=== PATIENT | male | born 1950 | race Caucasian/White ===

== ENCOUNTER 2018-01-24 09:25 | Day surgery (SDC) | payer MEDICARE, OTHER, SELFPAY ==
[2018-01-24] VITALS (8 sets, daily range): BP systolic 99–121; BP diastolic 63–81; PULSE 70–82; RESP 14–18; TEMP 36.1–36.6; O2SAT 94–99; BMI 24.2
--- NOTE | 2018-01-24 | PATH_ITS ---
[facility] Accession Number: [id number] . 01 Material submitted: . PART A: ASCENDING COLON POLYP PART B: HEPATIC FLEXTURE POLYP . 02 Diagnosis: A. Ascending Colon, Polyp, Biopsy: Tubular adenoma. . B. Hepatic Flexure, Polyp, Biopsy: Inflammatory pseudopolyp. Negative for dysplasia and malignancy. V/01/25/2018 . 02 Electronically signed: . Seema Allan MD, Pathologist NPI- [id number] . 01 Gross description: . Received two formalin-filled containers, both labeled with the patient's name: . A. In a container labeled ascending col polyp, the specimen consists of a 0.4 cm portion of tissue, entirely submitted in cassette A. B. In a container labeled hepatic flexure polyp, the specimen consists of a 0.5 cm portion of tissue, entirely submitted in cassette B. ([id number]) /FRR . 02 Pathologist provided ICD-10: D12.2 . 02 CPT . 835621, 478331 Performed at: 01 [facility] [address] [facility], [place], [place] [id number] MD Rick Haddad MD Phone: [phone] Performed at: 02 [facility] [address] [place], [place] [id number] MD Leopoldo Sarmiento MD Phone: [phone]
[2018-01-24] MEDS: SODIUM CHLORIDE 0.9% 1,000 ML 200 ML IV (10:22)
--- NOTE | 2018-01-24 11:32 | SUR.OPER ---
Polypectomy with cautery perfomed. magnet was applied during cautery per dr. Mosher.
--- NOTE | 2018-01-24 11:39 | PM.HP.1 ---
History of Present Illness Date Patient Seen: 01/24/18 Time Patient Seen: 11:40 Chief complaint: [id number] COLONOSCOPY W/POSS BX Narrative: History of colon polyps Patient History Medical History Automatic implantable cardioverter-defibrillator in situ (Acute) Cardiac arrhythmia (Acute) Cardiomyopathy (Acute) Hypertension (Acute) Family & Social History Social History: household members spouse Meds Home Medications Medication Instructions Recorded Confirmed Type aspirin 81 mg PO DAILY 01/24/18 01/24/18 History carvedilol 12.5 mg PO BID 01/24/18 01/24/18 History cholecalciferol (vitamin D3) 2,000 units PO DAILY 01/24/18 01/24/18 History coenzyme Q10 100 mg PO DAILY 01/24/18 01/24/18 History lisinopril 10 mg PO DAILY 01/24/18 01/24/18 History Allergies Allergy/AdvReac Type Severity Reaction Status Date / Time amoxicillin [From Augmentin] Allergy Nausea Verified 01/24/18 10:16 clavulanic acid Allergy Verified 01/24/18 10:16 [From Augmentin] pseudoephedrine AdvReac Tachycardia Verified 01/24/18 10:18 theophylline AdvReac Tachycardia Verified 01/24/18 10:17 Exam Vital Signs (past 8 hours): - Oropharynx: Free of lesion Chest: Clear to auscultation percussion Cardiac exam: No S3 or murmur 01/24/18 10:18 Temperature 97.9 F Pulse Rate 75 Respiratory Rate 15 Blood Pressure 121/81 Pulse Oximetry 99 Oxygen Delivery Method Room Air Assessment & Plan Plan: Assessment/Plan Narrative: History of colon polyps need for follow-up colonoscopy. If cautery to be used then magnet will be need to deactivate the defibrillator.
[2018-01-24] MEDS: MIDAZOLAM 5 MG/5 ML VIAL IV (11:41)
[2018-01-24] MEDS: fentaNYL 250 MCG/5 ML INJ IV (11:42)
--- NOTE | 2018-01-24 11:43 | P.HP_ITS ---
History of Present Illness Date Patient Seen: 01/24/18 Time Patient Seen: 11:40 Chief complaint: [id number] COLONOSCOPY W/POSS BX Narrative: History of colon polyps Patient History Medical History Automatic implantable cardioverter-defibrillator in situ (Acute) Cardiac arrhythmia (Acute) Cardiomyopathy (Acute) Hypertension (Acute) Family & Social History Social History: household members spouse Meds Home Medications Medication Instructions Recorded Confirmed Type aspirin 81 mg PO DAILY 01/24/18 01/24/18 History carvedilol 12.5 mg PO BID 01/24/18 01/24/18 History cholecalciferol (vitamin D3) 2,000 units PO DAILY 01/24/18 01/24/18 History coenzyme Q10 100 mg PO DAILY 01/24/18 01/24/18 History lisinopril 10 mg PO DAILY 01/24/18 01/24/18 History Allergies Allergy/AdvReac Type Severity Reaction Status Date / Time amoxicillin [From Augmentin] Allergy Nausea Verified 01/24/18 10:16 clavulanic acid Allergy Verified 01/24/18 10:16 [From Augmentin] pseudoephedrine AdvReac Tachycardia Verified 01/24/18 10:18 theophylline AdvReac Tachycardia Verified 01/24/18 10:17 Exam Vital Signs (past 8 hours): - Oropharynx: Free of lesion Chest: Clear to auscultation percussion Cardiac exam: No S3 or murmur 01/24/18 10:18 Temperature 97.9 F Pulse Rate 75 Respiratory Rate 15 Blood Pressure 121/81 Pulse Oximetry 99 Oxygen Delivery Method Room Air Assessment & Plan Plan: Assessment/Plan Narrative: History of colon polyps need for follow-up colonoscopy. If cautery to be used then magnet will be need to deactivate the defibrillator.
--- NOTE | 2018-01-24 11:43 | PM.OP.ENDO ---
Operative Date/Time/Diagnoses Date of procedure: 01/24/18 Time of procedure: 11:43 Pre-op diagnosis: See indications Post-op diagnosis: same Procedure & Clinicians Study performed: Colonoscopy and polypectomy Same procedure as scheduled: Yes Indications: History of colon polyps Surgeon: Leela Mosher Procedure Notes Procedure in detail: After informed consent was obtained the patient was placed in left lateral decubitus position. Video colonoscope was introduced the rectum scope easily passed the cecum. Preparation was good. On slow withdrawal mucosa was carefully examined. The scope was removed. The patient tolerated procedure well Blood loss none Complications none Sedation Fentanyl 100 mcg Versed 6 mg IV titration Total sedation time 21 min Findings 1. 4 mm polyp in the ascending colon Jumbo biopsied removed completely 2. Difficult to see 1.2 cm sessile polyp at the hepatic flexure. This had a somewhat broad base. Magnet was applied to the defibrillator and brief cautery was used to snare and remove this polyp. The area was injected with 2 cc of spot to tattoo for future location. 3. Extensive sigmoid and left-sided diverticulosis We will have to closely follow up on this polyp. Given its size and unusually broad nature at the base I think he should have follow-up colonoscopy in 1 year.
== END 2018-01-24 12:35 | disposition home or self-care (01) ==
PROVIDERS: PCP Family Medicine; Visit Provider Internal Medicine Gastroenterology
PROC: 0DJD8ZZ Inspection of Lower Intestinal Tract, Via Natural or Artificial Opening Endoscopic (ICD-10-PCS; CPT 45378; principal; 2018-01-24 11:00)
DX: Z12.11 Encounter for screening for malignant neoplasm of colon (principal); D12.2 Benign neoplasm of ascending colon; K51.40 Inflammatory polyps of colon without complications; K57.30 Diverticulosis of large intestine without perforation or abscess without bleeding; I10 Essential (primary) hypertension; I49.9 Cardiac arrhythmia, unspecified; I42.9 Cardiomyopathy, unspecified; Z86.010 Personal history of colon polyps; Z95.810 Presence of automatic (implantable) cardiac defibrillator; Z79.82 Long term (current) use of aspirin
CPT/HCPCS: 45385; 45381; 45380; 88305; J2250; J3010

== ENCOUNTER → 2021-07-02 13:38 | Outpatient (CLI) | payer MEDICARE, OTHER, SELFPAY ==
[2021-07-02 15:09] LABS: BUN Creatinine Ratio 21.5 (6-22); Blood Urea Nitrogen 20 mg/dL (9-20); Estimated Glomerular Filt Rate > 60.0 mL/min (>60)
== END ==
PROVIDERS: PCP Family Medicine; Referring Provider Urology; Visit Provider Urology
DX: R31.9 Hematuria, unspecified (principal)
CPT/HCPCS: 36415; 82565; 84520

== ENCOUNTER → 2021-07-07 12:43 | Outpatient (CLI) | payer MEDICARE, OTHER, SELFPAY ==
--- NOTE | 2021-07-07 12:53 | DI.CT.S_ITS ---
PROCEDURE: CT ABDOMEN PELVIS WO/W CON INDICATIONS: Gross hematuria TECHNIQUE: Optional 5 mm thick noncontrast images acquired from the diaphragm to the symphysis pubis. After the administration of intravenous contrast, 5 mm thick images acquired from the diaphragm to the symphysis pubis after a 10-minute delay. 2 mm thick coronal and sagittal reformats were then performed of the kidneys and ureters. For radiation dose reduction, the following was used: automated exposure control, adjustment of mA and/or kV according to patient size. COMPARISON: [facility], CT, KIDNEY/ URETER/BLADDER, 01/04/2009, 12:18. FINDINGS: Image quality: Excellent. Lung bases: Lung bases are clear. Heart size is normal. Urinary system: Stable appearance of the bilateral kidneys with multiple nonenhancing right renal hypodensities compatible with cysts. There is also cortical scarring of the left kidney with numerous variably sized small and large nonenhancing renal hypodensities compatible with and hyperdense cysts. No abnormal enhancement seen within these structures. There is no evidence for hydronephrosis. Multiple dense calcifications noted in the bilateral kidneys. There also multiple non obstructing nephrolith seen in the right kidney measuring up to 9 mm in size on the right and 5 mm on the left. No perinephric stranding. Bilateral ureters are normal in course and caliber. No ureteral stones seen. Renal calyces appear normal in morphology when filled with contrast. Opacified portions of both ureters demonstrate normal caliber. There is mild circumferential urinary bladder wall thickening. The anterior margin of the urinary bladder is not well visualized secondary to significant beam artifact from adjacent right pelvic sidewall surgical fixation hardware. Other solid organs: Liver is normal in size and enhancement. Gallbladder is surgically absent. Biliary system is non dilated. Pancreas enhances normally. Spleen is normal in size and enhancement. No adrenal nodules. Peritoneum and bowel: Bowel loops demonstrate normal wall thickness and caliber. No free fluid or air. Colonic diverticulosis without acute diverticulitis. Nodes and vessels: No retroperitoneal or mesenteric adenopathy by size criteria. Scattered atherosclerotic calcifications of the abdominal aorta and iliac vessels without aneurysmal dilatation. The inferior vena cava appears patent. Abdominal wall: No ventral hernias. Pelvis: No pathologic free pelvic fluid. No inguinal hernias. No pelvic adenopathy. Postsurgical changes from surgical fixation of right pelvic wall fracture. No suspicious osseous lesions. Degenerative changes of the imaged spine. Degenerative changes of the bilateral hips. There is prostate enlargement. Prostate contains scattered coarse calcifications internally. Bones: No suspicious bony lesions. No acute vertebral body compression fractures. IMPRESSION: 1. Bilateral nonobstructing nephrolithiasis. No evidence for hydronephrosis or hydroureter. No acute inflammatory changes. 2. Stable appearance of bilateral renal cysts. Numerous small renal cysts on the right. Multiple variably sized simple and hyperdense cysts on the left. 3. Unremarkable appearance of the upper and lower urinary collecting system without suspicious finding to suggest uroepithelial abnormalities. However, the urinary bladder wall is not well visualized secondary to significant beam hardening artifact from adjacent hardware from prior ORIF of the right pelvis. 4. Status post cholecystectomy. 5. Colonic diverticulosis without acute diverticulitis. 6. Atherosclerotic vascular disease. 7. Mild circumferential urinary bladder wall thickening likely related to sequela of chronic bladder outlet obstruction secondary to prostatomegaly. Other chronic findings as above. Dictated by: Wolfgang Klein M.D. on 07/07/2021 at 15:49 Approved by: Wolfgang Klein M.D. on 07/07/2021 at 16:06
== END ==
PROVIDERS: PCP Family Medicine; Referring Provider Urology; Visit Provider Urology
DX: R31.0 Gross hematuria (principal); N20.0 Calculus of kidney; N28.1 Cyst of kidney, acquired; N40.0 Benign prostatic hyperplasia without lower urinary tract symptoms; I70.0 Atherosclerosis of aorta; K57.90 Diverticulosis of intestine, part unspecified, without perforation or abscess without bleeding; Z90.49 Acquired absence of other specified parts of digestive tract
CPT/HCPCS: 74178

== ENCOUNTER 2023-02-07 11:22 | Day surgery (SDC) | payer MEDICARE, OTHER, SELFPAY ==
--- NOTE | 2023-02-07 | PATH_ITS ---
[facility] Accession Number: [id number] No. of containers..01 Tissue . 01 Material submitted: . colon - ASCENDING . 01 Diagnosis: Ascending Colon: Tubular adenoma. MRV 02/10/2023 1306 Local . 01 Electronically signed: . Carrie Stuart MD, Pathologist NPI- [id number] . 01 Gross description: . ASCENDING: Received in formalin is 1 fragment(s) of ling, soft tissue measuring 0.4 x 0.3 x 0.2 cm submitted entirely in 1 cassette(s) /AAY 02/09/2023 0242 Local . 01 Pathologist provided ICD-10: K63.5 . 01 CPT . 700726 Specimen Comment: A courtesy copy of this report has been sent to [phone] Performed at: 01 [facility] [address] [place] [id number] MD Rick Haddad MD Phone: [phone]
[2023-02-07 11:48] VITALS: BMI 24.0
[2023-02-07 12:01] VITALS: BP 130/87; PULSE 74; RESP 16; TEMP 36; O2SAT 97
[2023-02-07] MEDS: LACTATED RINGERS 1,000 ML 150 ML IV (12:03)
--- NOTE | 2023-02-07 12:26 | PM.HP.1 ---
History of Present Illness History of Present Illness Date Patient Seen: 02/07/23 Time Patient Seen: 12:27 Chief complaint: Dx Colonoscopy Narrative: 72-year-old man history of colonic polyps here for screening colonoscopy. Last colonoscopy 2017 demonstrated a benign adenomatous polyp. No family history of intestinal malignancy in first-degree relatives. No abdominal concerns today including pain, blood per rectum unintentional weight loss anorexia. [facility] Medical History Automatic implantable cardioverter-defibrillator in situ Cardiac arrhythmia Cardiomyopathy Hypertension Social History household members: spouse Smoking Status: Never smoker alcohol intake: never Meds Home Medications and Allergies Home Medications Medication Instructions Recorded Confirmed Type carvedilol 12.5 mg PO BID 01/24/18 02/07/23 History cholecalciferol (vitamin D3) 2,000 units PO DAILY 01/24/18 02/07/23 History coenzyme Q10 100 mg PO DAILY 01/24/18 02/07/23 History lisinopril 10 mg PO DAILY 01/24/18 02/07/23 History Allergies Allergy/AdvReac Type Severity Reaction Status Date / Time amoxicillin [From Augmentin] Allergy Nausea Verified 02/07/23 11:46 clavulanic acid Allergy Verified 02/07/23 11:46 [From Augmentin] mushroom Allergy Difficulty Verified 02/07/23 11:46 Breathing pseudoephedrine AdvReac Tachycardia Verified 02/07/23 11:46 theophylline AdvReac Tachycardia Verified 02/07/23 11:46 Exam Vital Signs (past 8 hours): - 02/07/23 12:01 Temperature 96.8 F L Pulse Rate 74 Respiratory Rate 16 Blood Pressure 130/87 Pulse Oximetry 97 Oxygen Delivery Method Room Air Oxygen Delivery Method Room Air Narrative Exam Narrative: General adult man alert oriented no acute distress Assessment & Plan Assessment & Plan narrative: The patient requires colorectal screening and colonoscopy is recommended. Technical details were discussed. Risks, benefits, alternatives explained. Risks including but not limited to myocardial infarction, aspiration, bleeding, pain, missed lesion, incomplete examination, need for further radiographic studies, colonic perforation, and need for major abdominal surgery were discussed. All questions were answered to their satisfaction, and they are in agreement with this plan.
[2023-02-07 12:55] VITALS: BP 110/70; PULSE 65; RESP 16; TEMP 35.8; O2SAT 96
[2023-02-07 13:00] VITALS: BP 104/71; PULSE 67; RESP 17; O2SAT 97
--- NOTE | 2023-02-07 13:00 | PM.OP.COLON ---
Operative Date/Time/Diagnoses Date of procedure: 02/07/23 Time of procedure: 13:00 Pre-op diagnosis: Colorectal screening Post-op diagnosis: other (Colonic polyp x1) Procedure & Clinicians Study performed: Colonoscopy Same procedure as scheduled: Yes Indications: Colorectal screening Surgeon: Bam Dash Procedure Notes Procedure in detail: The history and physical was performed/updated and the patient is ASA class is 2. The procedure was discussed in detail with the patient. Potential risks complications including infection, bleeding, missed diagnosis, perforation, need for surgery, and were explained. Their questions were answered and informed consent was obtained. Patient was brought to the procedure room and placed standard monitoring equipment. The patient's vital signs were monitored continuously throughout the entire procedure. Prior to starting time-out was performed. The patient was placed in the left lateral recumbent position. Procedural sedation was administered by anesthesia. Examination began with a thorough inspection of the perianal area there was no evidence of fissures, fistulae, external hemorrhoids or cutaneous malignancy. The colonoscopy scope was then placed into the anal canal and was advanced to the cecum, which was identified by the ileocecal valve, the appendiceal orifice and the confluence of the taenia. The scope was then slowly withdrawn examining colon thoroughly in all directions, irrigating it of any residual stool. Ascending colon-3 mm polyp removed with cold snare and biopsy forceps Flannery diverticulosis The patient tolerated the procedure well. They will be discharged once criteria are met. The prep was of poor quality. The withdrawl time was 10 minutes. Specimen(s): other (Ascending colon) Impression: Colonic polyp x1 Post-procedure Plan for aftercare: Follow-up is dependent on pathology findings likely 5 years Disposition: same day surgery
[2023-02-07 13:05] VITALS: BP 110/68; PULSE 68; RESP 20; TEMP 36.8; O2SAT 97
[2023-02-07 13:10] VITALS: BP 110/68; PULSE 66; RESP 21; O2SAT 98
[2023-02-07 13:15] VITALS: BP 122/77; PULSE 67; RESP 19; O2SAT 98
== END 2023-02-07 13:26 | disposition home or self-care (01) ==
PROVIDERS: PCP Family Medicine; Referring Provider Surgery; Visit Provider Surgery
PROC: 0DJD8ZZ Inspection of Lower Intestinal Tract, Via Natural or Artificial Opening Endoscopic (ICD-10-PCS; CPT 45378; principal; 2023-02-07 12:45)
DX: Z12.11 Encounter for screening for malignant neoplasm of colon (principal); K57.30 Diverticulosis of large intestine without perforation or abscess without bleeding; D12.2 Benign neoplasm of ascending colon
CPT/HCPCS: 45385; 45380

== ENCOUNTER → 2023-02-24 12:08 | Outpatient (CLI) | payer MEDICARE, OTHER, SELFPAY ==
--- NOTE | 2023-02-24 | DI.US.S_ITS ---
PROCEDURE: US RENAL COMPLETE INDICATIONS: STONES TECHNIQUE: Real-time scanning was performed of the kidneys and bladder, with image documentation. COMPARISON: [facility], CT, CT ABDOMEN PELVIS WO/W CON, 07/07/2021, 12:54. [facility], US, RENAL COMPLETE, 02/19/2009, 8:26. FINDINGS: Kidneys: Kidneys are normal in size. Right kidney measures 10.4 cm long; left kidney measures 12.6 cm long. Right renal cortical thickness is 1.4 cm; left renal cortical thickness is 1.6 cm. Renal cortical echotexture is normal. No hydronephrosis. No suspicious solid mass lesions. No kidney stones are seen on these images. Simple appearing bilateral renal cysts are seen, with the largest on the right measuring up to 1.7 cm and the largest on the left measuring up to 5.2 cm. Bladder: Pre-void bladder volume is 193 mL. Post-void residual is 111 mL. Pre-void images demonstrate no intraluminal masses or stones. On pre-void images, both ureteral jets are noted with color Doppler interrogation. (Of note, ureteral jets may not be detectable in up to 25% of cases due to insufficient differences in specific gravity between ureteral and bladder urine). Miscellaneous: No free pelvic fluid. IMPRESSION: No kidney stones are seen to the limits of these ultrasound images. Please consider a dedicated follow-up noncontrast CT for further evaluation. Moderate postvoid residual, 111 cc. Additional findings: Simple appearing bilateral renal cysts Dictated by: Gavin Sweet M.D. on 02/24/2023 at 13:08 Approved by: Gavin Sweet M.D. on 02/24/2023 at 13:11
== END ==
PROVIDERS: PCP Family Medicine; Referring Provider Urology; Visit Provider Urology
DX: N20.0 Calculus of kidney (principal); N28.1 Cyst of kidney, acquired
CPT/HCPCS: 76770

== ENCOUNTER → 2023-09-01 12:11 | Outpatient (CLI) | payer MEDICARE, OTHER, SELFPAY ==
--- NOTE | 2023-09-01 | DI.US.S_ITS ---
PROCEDURE: US RENAL COMPLETE INDICATIONS: FOLLOW-UP CYSTS TECHNIQUE: Real-time scanning was performed of the kidneys and bladder, with image documentation. COMPARISON: [facility], , US RENAL COMPLETE, 02/24/2023, 12:37. FINDINGS: Kidneys: Kidneys are normal in size. Right kidney measures 10.2 cm long; left kidney measures 11 cm long. Right renal cortical thickness is 0.9 cm; left renal cortical thickness is 1.8 cm. Renal cortical echotexture is normal. No hydronephrosis or nephrolithiasis. No suspicious solid mass lesions. Multiple bilateral anechoic simple cysts measuring up to 1.6 cm on the right and 4.6 cm on the left. Previously, the largest cyst measured 1.7 cm on the right and 5.2 cm on the left. No complex cystic lesions which require follow-up. Bladder: Bladder is decompressed, limiting evaluation. Miscellaneous: No free pelvic fluid. IMPRESSION: 1. No hydronephrosis or nephrolithiasis bilaterally. 2. Bilateral anechoic simple cysts, the largest of which measures 1.6 cm on the right, previously 1.7 cm and the largest of which measures 4.6 cm on the left, previously 5.2 cm. 3. Bladder is decompressed, limiting evaluation. Dictated by: Hans Green M.D. on 09/01/2023 at 13:36 Approved by: Hans Green M.D. on 09/01/2023 at 13:44
== END ==
PROVIDERS: PCP Urology; Referring Provider Urology; Visit Provider Urology
DX: N20.0 Calculus of kidney (principal); N28.1 Cyst of kidney, acquired
CPT/HCPCS: 76770

== ENCOUNTER → 2024-09-12 11:37 | Outpatient (CLI) | payer MEDICARE, OTHER, SELFPAY ==
--- NOTE | 2024-09-12 | DI.US.S_ITS ---
PROCEDURE: US RENAL COMPLETE INDICATIONS: Nephrolithiasis TECHNIQUE: Real-time scanning was performed of the kidneys and bladder, with image documentation. Forty images. COMPARISON: [facility], US, US RENAL COMPLETE, 09/01/2023, 12:22. FINDINGS: Kidneys: Mild diffuse increased renal cortical echogenicity bilaterally commonly medical renal disease. Right kidney is slightly atrophic relative to the left, measures 9.6 cm long; left kidney measures 13.8 cm long. Right renal cortical thickness is 1.2 cm; left renal cortical thickness is 1.7 cm. Several echogenic suspected nonobstructing renal calculi less likely to represent artifact related to renal fat largest on the right measuring up to 1.1 cm and 1.0 cm on the left. Bilateral renal cysts largest on the right measuring up to 1.7 and largest on the left superiorly 4.6 cm No hydronephrosis. No ultrasound evidence of suspicious mass lesion. Bladder: Pre-void bladder volume is 321 mL. Post-void residual is 89 mL. Pre-void images demonstrate no intraluminal masses or stones. On pre-void images, bilateral ureteral jets are noted with color Doppler interrogation. Miscellaneous: No free pelvic fluid. IMPRESSION: Mild diffuse increased renal cortical echogenicity commonly medical renal disease. No hydronephrosis. Several bilateral nonobstructing renal calculi and renal cysts. Mild postvoid residual 89 cc in the urinary bladder. If symptoms persist or worsen, or there is high clinical suspicion of renal abnormality, CT KUB could be performed. Dictated by: Maulik Ulloa M.D. on 09/12/2024 at 21:17 Approved by: Maulik Ulloa M.D. on 09/12/2024 at 21:22
== END ==
PROVIDERS: PCP Urology; Referring Provider Nurse Practitioner Adult Health; Visit Provider Nurse Practitioner Adult Health
DX: Z12.9 Encounter for screening for malignant neoplasm, site unspecified (principal); N20.0 Calculus of kidney; N28.1 Cyst of kidney, acquired
CPT/HCPCS: 76770

== ENCOUNTER → 2025-03-22 10:01 | Outpatient (CLI) | payer MEDICARE, OTHER, SELFPAY ==
--- NOTE | 2025-03-22 10:03 | DI.CT.S_ITS ---
PROCEDURE: CT ABDOMEN RENAL PROTOCOL INDICATIONS: LEFT RENAL MASS TECHNIQUE: Optional 5 mm thick noncontrast images acquired from the diaphragm to the iliac crests. After the administration of intravenous contrast, 5 mm thick images again acquired from the diaphragm to the iliac crests in the arterial and urographic phases. 5 mm thick coronal and sagittal reformats were then acquired. For radiation dose reduction, the following was used: automated exposure control, adjustment of mA and/or kV according to patient size. COMPARISON: [facility], US, US RENAL COMPLETE, 09/12/2024, 11:54. [facility], CT, CT ABDOMEN PELVIS WO/W CON, 07/07/2021, 12:54. FINDINGS: Image quality: Diagnostic. Kidneys and Ureters: Polycystic kidney disease. Multiple hyperattenuating left-sided renal cystic lesions, which do not demonstrate definite enhancement . Partially calcified scar along the superior pole of the left kidney. Small burden of punctate left-sided nonobstructing nephrolithiasis. Moderate burden of nonobstructing right-sided nephrolithiasis, largest stone measures 9 x 6 mm. No hydronephrosis. OTHER: Lower chest: Cardiomegaly. Liver: No solid mass. Gallbladder: Absent. Biliary ducts: No biliary dilation. Pancreas: No ductal dilation. Spleen: Size is within normal limits. Adrenal Glands: No adrenal nodules. Stomach and Bowel: Normal colonic caliber, without significant wall thickening. Colonic diverticulosis without evidence of diverticulitis. Peritoneum: No abnormal intraperitoneal fluid. No free air. Ventral Wall: No hernia. Abdominal Nodes: No retroperitoneal or mesenteric adenopathy by size criteria. Vessels: Aorta and inferior vena cava are normal in size. Bones: No aggressive osseous abnormality. IMPRESSION: Polycystic kidney disease. Suspicious renal cysts or definite renal mass. Small burden of left and moderate burden of right nonobstructing nephrolithiasis. No hydronephrosis. Dictated by: Steven Sanchez M.D. on 03/26/2025 at 15:09 Approved by: Steven Sanchez M.D. on 03/26/2025 at 15:15
[2025-03-22 10:47] LABS: Estimated Glomerular Filt Rate > 60 mL/min (>60)
== END ==
LOC: CT 10:02
PROVIDERS: Nurse Practitioner Adult Health; PCP Family Medicine; Referring Provider Urology; Visit Provider Urology
DX: N28.89 Other specified disorders of kidney and ureter (principal); N20.0 Calculus of kidney; Q61.3 Polycystic kidney, unspecified; Z90.49 Acquired absence of other specified parts of digestive tract
CPT/HCPCS: 36415; 74170; 82565; Q9967